=== PATIENT | male | born 1955 ===

== ENCOUNTER 2023-06-17 19:00 | Inpatient (IN) | payer OTHER ==
[2023-06-17 19:22] LABS: Actual Bicarbonate (HCO3v) 21.1 mEq/L (22-28); Base Excess -1.1 mEq/L (-2.0 to +3.0); Calcium, Ionized (venous) 1.01 mmol/L (1.16-1.32); Chloride (VBG) 92 mmol/L (98-106); Hematocrit-VBG 50 % (42.0-52.0); Potassium (VBG) 3.37 mmol/L (3.70-5.30); Sodium 131 mmol/L (133-146)
[2023-06-17 19:38] LABS: #Monocytes 0.8 thou/uL (0.11-0.59); #Neutrophils 10.1 thou/uL (1.40-6.50); %Basophils 0.2 % (0.0-1.0); %Lymphocytes 5.8 % (21.0-51.0); %Neutrophils 86.6 % (42.0-75.0); Hemoglobin 15.8 g/dL (14.0-18.0); Mean Corpuscular HGB CONC 35.9 g/dL (32.0-36.0); Mean Corpuscular Hemoglobin 33.8 pg (27.0-31.0); Mean Corpuscular Volume 94.2 fl (78.0-98.0); Platelet Count 179 10x3/uL (130-400); RBC Distribution Width 11.4 % (11.5-14.5); Red Blood Cell (RBC) Count 4.67 mill/uL (4.70-6.10); White Blood Cell (WBC) Count 11.7 10x3/uL (4.8-10.8)
[2023-06-17 19:54] LABS: ALT (SGPT) 70 U/L (8-55); AST (SGOT) 125 U/L (5-34); Alkaline Phosphatase 55 U/L (40-110); Anion Gap 23 mmol/L (10-20); BUN (Urea Nitrogen) 19 mg/dL (8.4-25.7); Bilirubin, Total 1.6 mg/dL (0.2-1.2); Calc. Creatinine Clearance 0 mL/min (70-130); Calcium 9.2 mg/dL (7.8-10.44); Carbon Dioxide 18 mmol/L (23-31); Chloride 94 mmol/L (98-107); Estimated GFR 65; Globulin 3.8 g/dL (2.4-3.5); Glucose 187 mg/dL (80-115); Potassium 3.4 mmol/L (3.5-5.1); Protein, Total 7.8 g/dL (5.8-8.1); Sodium 132 mmol/L (136-145)
[2023-06-17 19:56] LABS: Critical Call Chem-Lactate ERS.ZC @1956
[2023-06-17] MEDS ORDERED: Acetaminophen 500 MG TAB ONE (19:57)
[2023-06-17 20:02] LABS: Bacteria/HPF None Seen HPF (None Seen); Bilirubin Negative (Negative); Blood, Urine 1+ (Negative); CAUTI Indications for Culture Fever or rigors; Clarity Clear (Clear); Glucose, Urine (Dipstick) Normal (Negative); Ketone, Urine 20 mg/dL (Negative); Leukocyte Negative Leu/uL (Negative); Nitrite Negative (Negative); Protein, Urine (Dipstick) 50 mg/dL (Neg-Trace); RBC/HPF 0-3 HPF (0-3); Specific Gravity, Urine 1.024 (1.002-1.036); Squamous Epithelial 0-3 HPF (0-3); WBC/HPF 0-3 HPF (0-3); pH, Urine 5.5 (5.0-9.0)
[2023-06-17 20:04] LABS: Urine Culture Reflex No No
[2023-06-17] MEDS ORDERED: cefTRIAXone (ROCEPHIN) 2 GM VIAL ONE (20:04)
[2023-06-17] MEDS ORDERED: Sodium Chloride 0.9% 100 ML ONE ×2 (20:05→20:29)
[2023-06-17 20:28] LABS: Influenza A by NAA Not Detected (NotDetected); Influenza B by NAA Not Detected (NotDetected); SARS-CoV-2 NAA Rapid Test DETECTED (NotDetected)
[2023-06-17] MEDS ORDERED: Azithromycin 500 MG VIAL ONE (20:29)
[2023-06-17 22:45] LABS: Lactic Acid 2.1 mmol/L (0.5-2.2)
[2023-06-17] MEDS ORDERED: Dexamethasone 10 MG/ML VIAL ONE (22:50)
[2023-06-17] MEDS ORDERED: HYDROcodone/Acetaminophen 7.5/325 mg Tablet PO PRN (23:27)
[2023-06-18 01:00] VITALS: BMI 25.3
[2023-06-18 04:12] LABS: #Monocytes 0.4 thou/uL (0.11-0.59); #Neutrophils 5.9 thou/uL (1.40-6.50); %Lymphocytes 4.3 % (21.0-51.0); %Monocytes 5.5 % (0.0-10.0); %Neutrophils 89.7 % (42.0-75.0); Hematocrit 41.7 % (42.0-52.0); Hemoglobin 14.8 g/dL (14.0-18.0); Mean Corpuscular HGB CONC 35.5 g/dL (32.0-36.0); Mean Corpuscular Hemoglobin 33.3 pg (27.0-31.0); Mean Corpuscular Volume 93.7 fl (78.0-98.0); Mean Platelet Volume 9.9 fL (7.4-10.4); Platelet Count 142 10x3/uL (130-400); RBC Distribution Width 11.5 % (11.5-14.5); Red Blood Cell (RBC) Count 4.45 mill/uL (4.70-6.10); White Blood Cell (WBC) Count 6.5 10x3/uL (4.8-10.8)
[2023-06-18] MEDS ORDERED: Lorazepam 1 MG TAB PO PRN (04:53)
[2023-06-18] MEDS ORDERED: Lorazepam 2 MG/ML VIAL IM PRN (04:53)
[2023-06-18] MEDS ORDERED: Ondansetron ODT 4 MG TAB PO PRN (04:53)
[2023-06-18 04:57] LABS: Anion Gap 12 mmol/L (10-20); BUN (Urea Nitrogen) 15 mg/dL (8.4-25.7); Calc. Creatinine Clearance 92 mL/min (70-130); Calcium 8.3 mg/dL (7.8-10.44); Carbon Dioxide 24 mmol/L (23-31); Chloride 101 mmol/L (98-107); Estimated GFR 91; Glucose 181 mg/dL (80-115); Potassium 3.8 mmol/L (3.5-5.1); Sodium 133 mmol/L (136-145)
[2023-06-18] MEDS ORDERED: Electrolyte Replacement Protocol 1 EACH FS SCH (05:00)
[2023-06-18] MEDS: Thiamine HCl 200 MG/2 ML VIAL SLOW IVP SCH (05:37)
[2023-06-18] MEDS: methylPREDNISolone Sod Succ 40 MG VIAL IVP SCH (05:38)
[2023-06-18] MEDS: REMDESIVIR 200 MG in Sodium Chloride 0.9% 250 ML 210 ML IV SCH (05:38)
[2023-06-18 05:52] LABS: Phosphorus 2.6 mg/dL (2.3-4.7)
[2023-06-18 08:06] LABS: Amphetamine Not Detected (NotDetected); Barbiturates Screen Not Detected (NotDetected); Benzodiazepine Screen Not Detected (NotDetected); Cocaine Metabolite Screen Not Detected (NotDetected); Methadone Not Detected (NotDetected); Methamphetamine Not Detected (NotDetected); Opiate Screen Not Detected (NotDetected); Oxycodone Screen Not Detected (NotDetected); Phencyclidine (PCP) Not Detected (NotDetected); THC/Cannabinoid Screen Not Detected (NotDetected); Tricyclic Screen Not Detected (NotDetected)
[2023-06-18] MEDS: Magnesium 2 GM/50 ML(in water) 2 GM in Premix 1 BAG IVPB SCH (08:38)
[2023-06-18] MEDS: Enoxaparin 40 MG (0.4 mL) SYRINGE SC SCH (08:39)
[2023-06-18] MEDS: Folic Acid 1 MG TAB PO SCH (08:39)
[2023-06-18] MEDS: FLU VACC QS2023(65UP)/MF59C/PF 60 MCG/0.5 ML SYRINGE IM ONE (08:39)
[2023-06-18] MEDS: Multivit, Therapeutic 1 TAB PO SCH (08:39)
[2023-06-18] MEDS: Bisoprolol Fumarate 5 MG TAB PO SCH (10:49)
[2023-06-18] MEDS: Zinc Sulfate 220 MG CAP PO SCH (10:49)
[2023-06-18] MEDS: Ascorbic Acid 500 mg Chewable Tablet PO SCH (10:49)
[2023-06-18] MEDS: Dexamethasone 4 mg/ml Vial SLOW IVP SCH (10:49)
[2023-06-18] MEDS: Guaifenesin DM 100-10/5 ML UDCUP PO PRN (12:04)
[2023-06-18] MEDS: Albuterol 200 PUFF (6.7GM INHALER) INH SCH (19:24)
[2023-06-18] MEDS: Cholecalciferol 1,000 UNITS (25 MCG) TAB PO SCH (20:09)
[2023-06-18] MEDS: guaiFENesin ER 600 MG TAB PO SCH (20:09)
[2023-06-19] MEDS ORDERED: Lorazepam 1 MG TAB PO PRN (04:53)
[2023-06-19 06:50] LABS: #Monocytes 0.9 thou/uL (0.11-0.59); %Basophils 0.2 % (0.0-1.0); %Lymphocytes 4.5 % (21.0-51.0); %Monocytes 8.6 % (0.0-10.0); %Neutrophils 86.2 % (42.0-75.0); Hematocrit 43.8 % (42.0-52.0); Hemoglobin 15.2 g/dL (14.0-18.0); Mean Corpuscular HGB CONC 34.7 g/dL (32.0-36.0); Mean Corpuscular Hemoglobin 33.1 pg (27.0-31.0); Mean Corpuscular Volume 95.4 fl (78.0-98.0); Mean Platelet Volume 10.3 fL (7.4-10.4); Platelet Count 151 10x3/uL (130-400); RBC Distribution Width 11.6 % (11.5-14.5); Red Blood Cell (RBC) Count 4.59 mill/uL (4.70-6.10); White Blood Cell (WBC) Count 10.4 10x3/uL (4.8-10.8)
[2023-06-19 07:12] LABS: ALT (SGPT) 54 U/L (8-55); AST (SGOT) 75 U/L (5-34); Albumin 3.4 g/dL (3.4-4.8); Alkaline Phosphatase 53 U/L (40-110); Anion Gap 13 mmol/L (10-20); BUN (Urea Nitrogen) 16 mg/dL (8.4-25.7); Bilirubin, Total 0.6 mg/dL (0.2-1.2); CRP (Inflammatory) 9.86 mg/dL (= or < 0.5); Calc. Creatinine Clearance 105 mL/min (70-130); Calcium 8.4 mg/dL (7.8-10.44); Carbon Dioxide 27 mmol/L (23-31); Chloride 103 mmol/L (98-107); Estimated GFR 96; Globulin 3.3 g/dL (2.4-3.5); Glucose 177 mg/dL (80-115); Magnesium 2.3 mg/dL (1.6-2.6); Potassium 3.3 mmol/L (3.5-5.1); Protein, Total 6.7 g/dL (5.8-8.1); Sodium 140 mmol/L (136-145)
[2023-06-19] MEDS: REMDESIVIR 100 MG in Sodium Chloride 0.9% 250 ML 230 ML IV SCH (08:23)
[2023-06-19] MEDS: Potassium Chloride 20 MEQ TAB PO SCH (08:23)
[2023-06-20] MEDS: Albuterol 200 PUFF (6.7GM INHALER) INH PRN (04:30)
[2023-06-20] MEDS ORDERED: Lorazepam 1 MG TAB PO PRN (04:53)
[2023-06-20] MEDS: Benzonatate 100 MG CAP PO PRN (15:11)
[2023-06-20] MEDS: guaiFENesin/Codeine 200 mg/20 mg 10 ml Cup PO PRN (18:47)
[2023-06-20] MEDS: guaiFENesin/DM ER PO SCH ×3 (21:14→21:17)
[2023-06-20] MEDS: Benzocaine/Menthol 1 LOZ LOZ PO PRN (21:15)
[2023-06-21] MEDS ORDERED: Lorazepam 0.5 MG TAB PO PRN (04:53)
[2023-06-21 08:08] LABS: #Monocytes 1.2 thou/uL (0.11-0.59); #Neutrophils 5.9 thou/uL (1.40-6.50); %Basophils 0.1 % (0.0-1.0); %Eosinophils 0.1 % (0.0-10.0); %Lymphocytes 9.2 % (21.0-51.0); %Monocytes 15.5 % (0.0-10.0); %Neutrophils 74.3 % (42.0-75.0); Hematocrit 42.1 % (42.0-52.0); Hemoglobin 14.7 g/dL (14.0-18.0); Mean Corpuscular HGB CONC 34.9 g/dL (32.0-36.0); Mean Corpuscular Hemoglobin 33.6 pg (27.0-31.0); Mean Corpuscular Volume 96.3 fl (78.0-98.0); Mean Platelet Volume 10.3 fL (7.4-10.4); Platelet Count 155 10x3/uL (130-400); RBC Distribution Width 11.7 % (11.5-14.5); Red Blood Cell (RBC) Count 4.37 mill/uL (4.70-6.10); White Blood Cell (WBC) Count 7.9 10x3/uL (4.8-10.8)
[2023-06-21 08:30] LABS: Anion Gap 9 mmol/L (10-20); BUN (Urea Nitrogen) 16 mg/dL (8.4-25.7); Calc. Creatinine Clearance 103 mL/min (70-130); Calcium 8.5 mg/dL (7.8-10.44); Carbon Dioxide 27 mmol/L (23-31); Chloride 104 mmol/L (98-107); Estimated GFR 96; Glucose 112 mg/dL (80-115); Potassium 3.7 mmol/L (3.5-5.1); Sodium 136 mmol/L (136-145)
[2023-06-21] MEDS: Amlodipine 5 MG TAB PO SCH (09:07)
[2023-06-21] MEDS: Thiamine 100 MG TAB PO SCH (09:08)
[2023-06-22] MEDS: hydrALAZINE 20 MG/ML VIAL SLOW IVP PRN (01:03)
[2023-06-22 13:31] VITALS: BP 136/78; TEMP 97.1
== END 2023-06-22 12:22 | disposition home or self-care (01) | DRG 177 ==
LOC: ERS 19:00 → T4-B 23:32 → OBSVTOIN 06-18 08:43
PROVIDERS: ADMIT Hospitalist; ATTEND Internal Medicine
PROC: 8E0ZXY6 Isolation (ICD-10-PCS; principal; 2023-06-17)
PROC: 3E0333Z Introduction of Anti-inflammatory into Peripheral Vein, Percutaneous Approach (ICD-10-PCS; 2023-06-17)
PROC: XW033E5 Introduction of Remdesivir Anti-infective into Peripheral Vein, Percutaneous Approach, New Technology Group 5 (ICD-10-PCS; 2023-06-18)
DX: U07.1 COVID-19 (principal); J12.82 Pneumonia due to coronavirus disease 2019; J96.01 Acute respiratory failure with hypoxia; E87.20 Acidosis, unspecified; E87.1 Hypo-osmolality and hyponatremia; I10 Essential (primary) hypertension; E86.0 Dehydration; E83.42 Hypomagnesemia; E87.6 Hypokalemia; F10.20 Alcohol dependence, uncomplicated; Z88.0 Allergy status to penicillin; Z88.8 Allergy status to other drugs, medicaments and biological substances; Z87.891 Personal history of nicotine dependence
CPT/HCPCS: 36415; 70450; 71045; 80048; 80053; 80306; 81001; 82805; 83605; 83735; 84100; 85025; 86140; 87040; 87086; 90471; 90694; 93005; 94760; 96361; 96365; 96366; 96367; 96372; 96375; G0008; G0378; J0248; J0360; J0456; J0696; J1100; J1650; J2920; J3411; J3475; J3490; J7050